=== PATIENT | female | born 1965 | race Caucasian/White ===

== ENCOUNTER 2023-06-13 22:36 | Emergency (ER) | payer OTHER ==
[2023-06-13] MEDS ORDERED: MORPHINE 4 MG/ML SYR ONE (23:29)
[2023-06-13] MEDS ORDERED: ONDANSETRON 4 MG/2 ML VIAL ONE (23:29)
[2023-06-13] MEDS ORDERED: KETOROLAC 30 MG/ML INJ ONE (23:29)
[2023-06-13 23:37] LABS: Absolute Lymphocytes (CBC) 1.8 K/uL (0.7-4.9); Hematocrit 34.2 % (36.0-45.0); Lymphocytes % 15.4 % (15.3-44.8); MCV 89.5 fL (80-100); MPV 7.8 fL (7.6-11.3); Platelets 241 thou/uL (152-406); RBC Red Blood Cell Count 3.83 M/uL (3.86-4.86)
[2023-06-13 23:52] LABS: Potassium 3.7 mEq/L (3.5-5.1)
[2023-06-14] MEDS ORDERED: CYCLOBENZAPRINE 10 MG TAB ONE (01:23)
[2023-06-14] MEDS ORDERED: HYDROCODONE/APAP 10/325 TAB ONE (01:24)
--- NOTE | 2023-06-14 02:01 | EDPHYS ---
Physician Documentation [facility] Name: Rema Michael Age: 58 yrs Sex: Female : 1965 Arrival Date: 06/13/2023 Time: 22:36 Bed 3 Private MD: ED Physician Shaw Candelaria HPI: 06/14 00:48 This 58 yrs old Female presents to ER via EMS with complaints of fall , sp4 multiple trauma . 02:07 Very pleasant 58-year-old female [place] she fell struck her sp4 head on a pole also sustained a left shoulder injury and also presents with neck pain and lower back pain. Patient presented with EMS in a c-collar but not on a spinal board. Patient has no signs of acute paralysis. Patient has history of cervical spine fusion -C5-C6-C7 levels . Patient primarily complains of left lateral scalp contusion, headache, left shoulder pain, neck pain, and lower back pain. Historical: - Allergies: 06/13 23:55 Wheat/glutens; jw7 - Home Meds: 23:55 Lisinopril Oral [Active]; levothyroxine oral [Active]; Trulicity subcutaneous [Active]; jw7 Furosemide Oral [Active]; - PMHx: 23:55 Diabetes mellitus; jw7 06/14 00:00 Thyroid; Hypertensive disorder; Hypercholesterolemia; Depressive disorder; Skin Cancer; jw7 - PSHx: 00:00 Spinal Infusion, C5, C6, C7; Rotator Cuff (L \\T\\ R); section; Skin Cancer, R jw7 forearm; - Immunization history:: Adult Immunizations up to date, Client reports receiving the 2nd dose of the Covid vaccine, Flu vaccine is up to date. - Social history:: Smoking status: Patient denies any tobacco usage or history of. - Family history:: not pertinent. ROS: 02:07 Constitutional: Negative for fever, chills, and weight loss, positive head injury, neck sp4 injury, positive lower back pain, positive left shoulder injury MS/Extremity: Positive for left shoulder injury, left shoulder pain, neck pain, lower back pain, scalp contusion left lateral location 02:07 All other systems are negative, Exam: 02:07 Constitutional: This is a well developed, well nourished patient who is awake, alert, sp4 and in no acute distress. Patient is in c-collar, no acute distress. Left forehead to left parietal scalp hematoma Head/Face: Normocephalic, left forehead to left parietal scalp hematoma Eyes: Pupils equal round and reactive to light, extra-ocular motions intact. Lids and lashes normal. Conjunctiva and sclera are not injected. Cornea within normal limits. Periorbital areas with no swelling, redness, or edema. ENT: Nares patent. No nasal discharge, no septal abnormalities noted. Tympanic membranes are normal and external auditory canals are clear. Oropharynx with no redness, swelling, or masses, exudates, or evidence of obstruction, uvula midline. Mucous membranes moist. Neck: Trachea midline, no thyromegaly or masses palpated, and no cervical lymphadenopathy. Supple, full range of motion without nuchal rigidity, or vertebral point tenderness. Chest/axilla: Normal chest wall appearance and motion. Nontender with no deformity. No lesions are appreciated. Cardiovascular: Regular rate and rhythm with a normal S1 and S2. No gallops, murmurs, or rubs. Normal PMI, no JVD. No pulse deficits. Respiratory: Lungs have equal breath sounds bilaterally, clear to auscultation and percussion. No rales, rhonchi or wheezes noted. No increased work of breathing, no retractions or nasal flaring. Abdomen/GI: Soft, non-tender, with normal bowel sounds. No distension or tympany. No guarding or rebound. No evidence of tenderness throughout. Back: No spinal tenderness. No costovertebral tenderness. Skin: Warm, dry with normal turgor. Normal color with no rashes, no lesions, and no evidence of cellulitis. MS/ Extremity: Pulses equal, no cyanosis. Neurovascular intact. Full, normal range of motion. Neuro: Awake and alert, GCS 15, oriented to person, place, time, and situation. Cranial nerves II-XII grossly intact. Motor strength 5/5 in all extremities. Sensory grossly intact. Psych: Awake, alert, with orientation to person, place and time. Behavior, mood, and affect are within normal limits Vital Signs: 06/13 22:45 BP 147 / 82 RA Supine (auto/reg); Pulse 98 MON; Resp 18 S; Temp 97.4(O); Pulse Ox 100% jw7 on R/A; Weight 127.01 kg; Height 5 ft. 8 in. ; Pain 9/10; 06/14 00:10 BP 123 / 52; Pulse 97; Resp 16 S; Pulse Ox 96% on R/A; jw7 01:15 BP 127 / 59; Pulse 93; Resp 18 S; Pulse Ox 98% on R/A; jw7 06/13 22:45 Body Mass Index 42.57 (127.01 kg, 172.72 cm) 7 06/13 22:45 Pain Scale: Adult jw7 Procedures: 02:07 Splinting: Splint applied to anterior aspect of left shoulder using sling, applied by 4 tech. Examined by me, post splint application: neurovascular intact, 2+ distal pulses palpable, brisk capillary refill noted, Patient tolerated well, Left arm sling and swath was applied. MDM: 06/13 22:54 Patient medically screened. [facility] 06/14 00:48 ED course: CT reports - FINDINGS: Although NECK: BRAIN: "Empty sella" appearance of the sp4 sella turcica with thinning of the pituitary parenchyma. No extra-axial fluid collection. No intracranial hemorrhage. No transtentorial herniation. No focal alston-white matter differentiation abnormality. MIDLINE SHIFT: No midline shift. OROPHARYNX: Unremarkable. HYPOPHARYNX: Unremarkable. LARYNX: Unremarkable. Normal epiglottis. TRACHEA: Unremarkable. RETROPHARYNGEAL SPACE: Unremarkable. SUBMANDIBULAR/PAROTID GLANDS: Unremarkable. Glands are normal in size. THYROID: Unremarkable. No enlarged or calcified nodules. ORBITS: Bilateral globes and orbits are intact with no abnormal intraorbital mass, collection, or foreign body. CHEST: LUNGS: Unremarkable. No mass. No consolidation. PLEURAL SPACE: Unremarkable. No significant effusion. No pneumothorax. HEART: Unremarkable. No cardiomegaly. No significant pericardial effusion. No significant coronary artery calcifications. ABDOMEN: LIVER: Unremarkable. GALLBLADDER AND BILE DUCTS: Cholelithiasis with no ductal dilatation or intraductal stones. PANCREAS: Unremarkable. No ductal dilation. SPLEEN: Unremarkable. No splenomegaly. ADRENALS: Unremarkable. No mass. KIDNEYS AND URETERS: Unremarkable. No obstructing stones. No hydronephrosis. STOMACH AND BOWEL: Unremarkable. No obstruction. No mucosal thickening. PELVIS: APPENDIX: No findings to suggest acute appendicitis. BLADDER: Unremarkable. No stones. REPRODUCTIVE: Unremarkable as visualized. NECK, CHEST, ABDOMEN and PELVIS: INTRAPERITONEAL SPACE: No free air or significant free fluid or fluid collection. BONES/JOINTS: Rotator cuff tear screws demonstrated in the bilateral humeral heads. Nondisplaced fracture of the posterior left glenoid. ACDF fixation plate and screws demonstrated at the C5-C7 levels, without evidence of hardware fracture, failure, or loosening. Associated osseous fusion of the C5-C7 disc spaces. Degenerative fusion of the right C2-3 posterior facets. No acute fracture or significant subluxation of the cervical, thoracic, or lumbar spine. No fracture of the calvarium or visualized facial bones. SOFT TISSUES: Moderate-sized left frontal scalp hematoma. No abnormal prevertebral soft tissue swelling. VASCULATURE: Unremarkable. No aortic aneurysm. LYMPH NODES: Unremarkable. No enlarged lymph nodes. OTHER FINDINGS: Dens is intact. Cervicocranial alignment is maintained. IMPRESSION: 1. Moderate-sized left frontal scalp hematoma. 2. Nondisplaced fracture of the posterior left glenoid. No other acute osseous abnormality. 3. No acute intracranial or cervical spine abnormality. 4. Allowing for lack of intravenous contrast, no acute abnormality within the chest, abdomen, or pelvis. 5. Cholelithiasis with no ductal dilatation or intraductal stones. . 01:58 ED course: X ray left humerus - EXAM DESCRIPTION: Shoulder Left 2 View (accession sp4 [id number]), Humerus Left (accession [id number]) CLINICAL HISTORY: shoulder injury COMPARISON: None. FINDINGS: 2 views of the left shoulder and 2 views of the left humerus. Osteopenia. Spurring of the acromioclavicular joint. Postoperative change of the cervical spine. Plate spondylosis of the visualized spine. Postoperative change of the humeral head. No glenohumeral dislocation. No acute fracture or dislocation. IMPRESSION: 1. No acute fracture or dislocation. Electronically signed by: Ge Hardwick 06/14/2023 1:34 AM. ED course: X ray Left shoulder - COMPARISON: None. FINDINGS: 2 views of the left shoulder and 2 views of the left humerus. Osteopenia. Spurring of the acromioclavicular joint. Postoperative change of the cervical spine. Plate spondylosis of the visualized spine. Postoperative change of the humeral head. No glenohumeral dislocation. No acute fracture or dislocation. IMPRESSION: 1. No acute fracture or dislocation. Electronically signed by: Ge Hardwick 06/14/2023 1:34 AM. 02:07 Differential Diagnosis altered mental status, Head injury, syncope, multiple trauma, sp4 left shoulder contusion, back sprain, neck sprain, neck fracture. Data reviewed: vital signs, nurses notes, EMS record, lab test result(s), radiologic studies, CT scan, plain films. Consideration of Admission/Observation. ED course: Left arm sling was applied for comfort.. Left posterior nondisplaced glenoid cavity fracture -patient was advised to follow-up with orthopedist in [place] where she resides. . 06/13 22:53 Order name: Basic Metabolic Panel; Complete Time: 00:46 sp4 06/13 22:53 Order name: CBC with Diff; Complete Time: 00:46 4 06/13 22:53 Order name: Type And Screen; Complete Time: 00:46 4 06/13 22:53 Order name: CT Traumagram (Head C Spine CAP wo con) 4 06/14 00:46 Order name: Shoulder Left (2 View) XRAY 4 06/14 00:46 Order name: Humerus Left XRAY 4 06/13 22:53 Order name: Labs collected and sent; Complete Time: 23:42 sp4 06/14 01:07 Order name: Sling; Complete Time: 01:54 sp4 Administered Medications: 06/13 23:43 Drug: Ketorolac IVP 30 mg IVP once Route: IVP; Site: right [facility]cubital; [facility] 06/14 01:01 Follow up: Response: No adverse reaction; Marked relief of symptoms [facility] 06/13 23:44 Drug: morphine IVP or IV 8 mg IVP once over 4 mins Route: IVP; Infused Over: 4 mins; jw7 Site: right antecubital; 06/14 01:01 Follow up: Response: No adverse reaction; Marked relief of symptoms 7 06/13 23:44 Drug: Ondansetron IVP 8 mg IVP once; over 2 minutes Route: IVP; Site: right antecubital;7 06/14 01:01 Follow up: Response: No adverse reaction [facility] 01:16 Drug: [place] PO 10 mg-325 mg 1 tabs PO once Route: PO; [facility] 01:55 Follow up: Response: No adverse reaction; Marked relief of symptoms jw7 01:16 Drug: Cyclobenzaprine PO 10 mg PO once Route: PO; jw7 01:55 Follow up: Response: No adverse reaction jw7 Disposition Summary: 06/14/23 02:01 Discharge Ordered Problem: new sp4 Symptoms: have improved sp4 Condition: Stable sp4 Diagnosis - Acute fall, left glenoid cavity fracture, left scalp hematoma, acute back sprain, sp4 left shoulder contusion, left posterior glenoid cavity fracture - Nondisplaced fracture left posterior glenoid sp4 Followup: sp4 - With: Private Physician - When: 7 - 10 days - Reason: Recheck today's complaints Discharge Instructions: - Discharge Summary Sheet sp4 - Contusion, [id number] sp4 Forms: - Patient Portal Instructions sp4 Prescriptions: - Ibuprofen 800 mg Oral Tablet - take 1 tablet by ORAL route every 8 hours As needed take with food; 30 tablet; sp4 Refills: 0, Product Selection Permitted - Cyclobenzaprine 10 mg Oral Tablet - take 1 tablet by ORAL route every 8 hours As needed; 30 tablet; Refills: 0, sp4 Product Selection Permitted - Tramadol 50 mg Oral Tablet - take 1 tablet by ORAL route every 8 hours as needed; 20 tablet; Refills: 0, sp4 Product Selection Permitted Signatures: Dispatcher [employer] Chelly Minaya RN RN jw7 Shaw Candelaria MD MD sp4 Corrections: (The following items were deleted from the chart) 00:03 06/13 23:55 PMHx: spinal infusion C5,C6,C7; jw7 7 06/14 00:03 06/13 23:55 PMHx: Rotator Cuff (L \\T\\ R); jw7 jw7
--- NOTE | 2023-06-14 02:01 | ER ---
Nurse's Notes [facility] Name: Rema Michael Age: 58 yrs Sex: Female : 1965 Arrival Date: 06/13/2023 Time: 22:36 Bed 3 Private MD: Diagnosis: Acute fall, left glenoid cavity fracture, left scalp hematoma, acute back sprain, left shoulder contusion, left posterior glenoid cavity fracture;Nondisplaced fracture left posterior glenoid Presentation: 06/13 22:45 Chief complaint: Patient states: "I fell and hit my head, left shoulder, and left knee".jw7 22:45 Method Of Arrival: EMS: [facility] 22:45 Coronavirus screen: At this time, the client does not indicate any symptoms associated jw with coronavirus-19. Ebola Screen: No symptoms or risks identified at this time. Initial Sepsis Screen: Does the patient meet any 2 criteria? No. Patient's initial sepsis screen is negative. Does the patient have a suspected source of infection? No. Patient's initial sepsis screen is negative. Risk Assessment: Do you want to hurt yourself or someone else? Patient reports no desire to harm self or others. Onset of symptoms was June 13, 2023. 22:45 Acuity: MARINO 3 jw7 Triage Assessment: 22:45 General: Appears in no apparent distress. uncomfortable, Behavior is calm, cooperative, jw7 quiet. Pain: Complains of pain in head, neck, lumbar area, left low back, left mid back, right mid back, right low back and left arm Pain does not radiate. Pain currently is 9 out of 10 on a pain scale. Quality of pain is described as sharp, stabbing, throbbing, Pain began suddenly, Is continuous, Noted to be resistant to movement. EENT: No deficits noted. No signs and/or symptoms were reported regarding the EENT system. Neuro: Alfredo Agitation-Sedation Scale (RASS): 0 - Alert and Calm Level of Consciousness is awake, alert, obeys commands, Oriented to person, place, time, situation, Pupils are PERRLA. Cardiovascular: No deficits noted. Capillary refill < 3 seconds Clubbing of nail beds is absent JVD is absent Patient's skin is warm and dry. Respiratory: No deficits noted. Airway is patent Trachea midline Respiratory effort is even, unlabored, Respiratory pattern is regular, symmetrical. GI: No deficits noted. No signs and/or symptoms were reported involving the gastrointestinal system. Abdomen is round non-distended, obese, Last BM was June 14, 2023. : No deficits noted. No signs and/or symptoms were reported regarding the genitourinary system. Derm: Skin is intact, is healthy with good turgor, Skin is dry, Skin is normal, Skin temperature is warm hematoma to left side of head. Musculoskeletal: Circulation, motion, and sensation intact. Range of motion: limited in left shoulder, left hip and left knee. Injury Description: Abrasion sustained to left knee. Historical: - Allergies: 23:55 Wheat/glutens; jw7 - Home Meds: 23:55 Lisinopril Oral [Active]; levothyroxine oral [Active]; Trulicity subcutaneous [Active]; jw7 Furosemide Oral [Active]; - PMHx: 23:55 Diabetes mellitus; 7 06/14 00:00 Thyroid; Hypertensive disorder; Hypercholesterolemia; Depressive disorder; Skin Cancer; jw7 - PSHx: 00:00 Spinal Infusion, C5, C6, C7; Rotator Cuff (L \\T\\ R); section; Skin Cancer, R jw7 forearm; - Immunization history:: Adult Immunizations up to date, Client reports receiving the 2nd dose of the Covid vaccine, Flu vaccine is up to date. - Social history:: Smoking status: Patient denies any tobacco usage or history of. - Family history:: not pertinent. Screenin/17 22:45 [facility] ED Fall Risk Assessment (Adult) History of falling in the last 3 months, 7 including since admission Yes- single mechanical fall (1 pt) Confusion or Disorientation No (0 pts) Intoxicated or Sedated No (0 pts) Impaired Gait No (0 pts) Mobility Assist Device Used No (0 pt) Altered Elimination No (0 pt) Score/Fall Risk Level 0 - 2 = Low Risk Oriented to surroundings, Maintained a safe environment, Educated pt \\T\\ family on fall prevention, incl call for assistance when getting out of bed. Abuse screen: Denies threats or abuse. Denies injuries from another. Nutritional screening: No deficits noted. Tuberculosis screening: No symptoms or risk factors identified. Assessment: 23:00 General: see triage assessment. 7 06/14 00:09 Reassessment: Patient appears in no apparent distress at this time. Patient and/or jw7 family updated on plan of care and expected duration. Pain level reassessed. Patient is alert, oriented x 3, equal unlabored respirations, skin warm/dry/pink. Patient states symptoms have improved. 01:20 Reassessment: Patient appears in no apparent distress at this time. No changes from jw7 previously documented assessment. Patient and/or family updated on plan of care and expected duration. Pain level reassessed. Patient is alert, oriented x 3, equal unlabored respirations, skin warm/dry/pink. Vital Signs: 06/13 22:45 BP 147 / 82 RA Supine (auto/reg); Pulse 98 MON; Resp 18 S; Temp 97.4(O); Pulse Ox 100% jw7 on R/A; Weight 127.01 kg; Height 5 ft. 8 in. ; Pain 9/10; 06/14 00:10 BP 123 / 52; Pulse 97; Resp 16 S; Pulse Ox 96% on R/A; jw7 01:15 BP 127 / 59; Pulse 93; Resp 18 S; Pulse Ox 98% on R/A; jw7 06/13 22:45 Body Mass Index 42.57 (127.01 kg, 172.72 cm) jw7 06/13 22:45 Pain Scale: Adult jw ED Course: 06/13 22:42 Patient arrived in ED. as6 22:45 Shaw Candelaria MD is Attending Physician. sp4 22:45 Patient has correct armband on for positive identification. Bed in low position. Call [facility] light in reach. Side rails up X2. 23:13 Chelly Sánchez RN is Primary Nurse. jw7 23:43 Initial lab(s) drawn, by de, sent to lab. Inserted saline lock: 20 gauge in right [facility] antecubital area, using aseptic technique. Blood collected. 23:55 Triage completed. jw7 06/14 00:09 Arm band placed on left wrist. jw7 00:10 CT Traumagram (Head C Spine CAP wo con) In Process Unspecified. EDMS 01:22 Shoulder Left (2 View) XRAY In Process Unspecified. EDMS 01:22 Humerus Left XRAY In Process Unspecified. EDMS 01:55 No provider procedures requiring assistance completed. jw7 02:11 IV discontinued, intact, bleeding controlled, No redness/swelling at site. Pressure as6 dressing applied. 02:12 Provided Education on: bedrest, follow up with orthro . as6 Administered Medications: 06/13 23:43 Drug: Ketorolac IVP 30 mg IVP once Route: IVP; Site: right antecubital; jw7 06/14 01:01 Follow up: Response: No adverse reaction; Marked relief of symptoms 7 06/13 23:44 Drug: morphine IVP or IV 8 mg IVP once over 4 mins Route: IVP; Infused Over: 4 mins; jw7 Site: right antecubital; 06/14 01:01 Follow up: Response: No adverse reaction; Marked relief of symptoms jw7 06/13 23:44 Drug: Ondansetron IVP 8 mg IVP once; over 2 minutes Route: IVP; Site: right antecubital;jw7 06/14 01:01 Follow up: Response: No adverse reaction jw7 01:16 Drug: [place] PO 10 mg-325 mg 1 tabs PO once Route: PO; jw7 01:55 Follow up: Response: No adverse reaction; Marked relief of symptoms jw7 01:16 Drug: Cyclobenzaprine PO 10 mg PO once Route: PO; jw7 01:55 Follow up: Response: No adverse reaction jw7 Medication: 01:55 VIS not applicable for this client. jw7 Outcome: 02:01 Discharge ordered by . sp4 02:11 Discharged to home ambulatory, with significant other, as6 02:11 Condition: stable 02:11 Discharge instructions given to patient, Instructed on discharge instructions, follow up and referral plans. medication usage, Demonstrated understanding of instructions, follow-up care, medications, Prescriptions given X 3, 02:12 Patient left the ED. as6 Signatures: Dispatcher [employer] EDND Silvestre Russell RN RN as6 Chelly Sánchez RN RN jw7 Shaw Candelaria MD MD sp4 Corrections: (The following items were deleted from the chart) 00:03 06/13 23:55 PMHx: spinal infusion C5,C6,C7; jw7 06/14 00:03 06/13 23:55 PMHx: Rotator Cuff (L \\T\\ R); jw7 7 06/14 00:59 09/17 22:45 Derm: Skin is intact, is healthy with good turgor, Skin is dry, Skin is jw7 normal, Skin temperature is warm jw7
[2023-06-14 03:42] VITALS: TEMP 97.4
[2023-06-14 03:44] VITALS: BP 127/59; O2SAT 98
--- NOTE | 2023-06-14 15:14 | RAD REPORT ---
EXAM DESCRIPTION: RAD - Humerus Left - 06/14/2023 1:20 am CLINICAL HISTORY: Shoulder injury COMPARISON: None. FINDINGS: 2 views of the left shoulder and 2 views of the left humerus. Osteopenia. Spurring of the acromioclavicular joint. Postoperative change of the cervical spine. Plate spondylosis of the visuali zed spine. Postoperative change of the humeral head. No glenohumeral dislocation. No acute fracture o r dislocation. IMPRESSION: 1. No acute fracture or dislocation. Electronically signed by: Ge Hardwick 06/14/2023 1:34 AM CDT Due to temporary technical issues with the PACS/Fluency reporting system, reports are being signed by the in house radiologist without review as a courtesy to ensure prompt reporting. The interpreting r adiologist is fully responsible for the content of the report.
--- NOTE | 2023-06-14 15:19 | RAD REPORT ---
EXAM DESCRIPTION: RAD - Shoulder Left 2 View - 06/14/2023 1:20 am CLINICAL HISTORY: Shoulder injury COMPARISON: None. FINDINGS: 2 views of the left shoulder and 2 views of the left humerus. Osteopenia. Spurring of the acromioclavicular joint. Postoperative change of the cervical spine. Plate spondylosis of the visuali zed spine. Postoperative change of the humeral head. No glenohumeral dislocation. No acute fracture o r dislocation. IMPRESSION: 1. No acute fracture or dislocation. Electronically signed by: Ge Hardwick 06/14/2023 1:34 AM CDT Due to temporary technical issues with the PACS/Fluency reporting system, reports are being signed by the in house radiologist without review as a courtesy to ensure prompt reporting. The interpreting r adiologist is fully responsible for the content of the report.
--- NOTE | 2023-06-14 15:20 | RAD REPORT ---
EXAM DESCRIPTION: CT - Head C Spine Cap Wo Con - 06/14/2023 7:00 am CLINICAL HISTORY: The patient is 58 years old and is Female; head, neck back injury [facility] MAIN TECHNIQUE: Axial computed tomography images of the head and cervical spine. Axial computed tomogra phy images of the chest, abdomen and pelvis without intravenous contrast. Sagittal and coronal refo rmatted images were created and reviewed. This CT exam was performed using one or more of the follo wing dose reduction techniques: automated exposure control, adjustment of the mA and/or kV accordin g to patient size, and/or use of iterative reconstruction technique. COMPARISON: No relevant prior studies available. FINDINGS: Although NECK: BRAIN: "Empty sella" appearance of the sella turcica with thinning of the pituitary parenchyma. No extra-axial fluid collection. No intracranial hemorrhage. No transtentorial herniation. No focal alston-white matter differentiation abnormality. MIDLINE SHIFT: No midline shift. OROPHARYNX: Unremarkable. HYPOPHARYNX: Unremarkable. LARYNX: Unremarkable. Normal epiglottis. TRACHEA: Unremarkable. RETROPHARYNGEAL SPACE: Unremarkable. SUBMANDIBULAR/PAROTID GLANDS: Unremarkable. Glands are normal in size. THYROID: Unremarkable. No enlarged or calcified nodules. ORBITS: Bilateral globes and orbits are intact with no abnormal intraorbital mass, collection, or f oreign body. CHEST: LUNGS: Unremarkable. No mass. No consolidation. PLEURAL SPACE: Unremarkable. No significant effusion. No pneumothorax. HEART: Unremarkable. No cardiomegaly. No significant pericardial effusion. No significant cor onary artery calcifications. ABDOMEN: LIVER: Unremarkable. GALLBLADDER AND BILE DUCTS: Cholelithiasis with no ductal dilatation or intraductal stones. PANCREAS: Unremarkable. No ductal dilation. SPLEEN: Unremarkable. No splenomegaly. ADRENALS: Unremarkable. No mass. KIDNEYS AND URETERS: Unremarkable. No obstructing stones. No hydronephrosis. STOMACH AND BOWEL: Unremarkable. No obstruction. No mucosal thickening. PELVIS: APPENDIX: No findings to suggest acute appendicitis. BLADDER: Unremarkable. No stones. REPRODUCTIVE: Unremarkable as visualized. NECK, CHEST, ABDOMEN and PELVIS: INTRAPERITONEAL SPACE: No free air or significant free fluid or fluid collection. BONES/JOINTS: Rotator cuff tear screws demonstrated in the bilateral humeral heads. Nondisplaced fracture of the posterior left glenoid. ACDF fixation plate and screws demonstrated at the C5-C7 levels, without evidence of hardware fracture, failure, or loosening. Associated osseous fusion of the C5-C7 disc spaces. Degenerative fusion of the right C2-3 posterior facets. No acute fracture or significant subluxation of the cervical, thoracic, or lumbar spine. No fracture of the calvarium or visualized facial bones. SOFT TISSUES: Moderate-sized left frontal scalp hematoma. No abnormal prevertebral soft tissue swelling. VASCULATURE: Unremarkable. No aortic aneurysm. LYMPH NODES: Unremarkable. No enlarged lymph nodes. OTHER FINDINGS: Dens is intact. Cervicocranial alignment is maintained. IMPRESSION: 1. Moderate-sized left frontal scalp hematoma. 2. Nondisplaced fracture of the posterior left glenoid. No other acute osseous abnormality. 3. No acute intracranial or cervical spine abnormality. 4. Allowing for lack of intravenous contrast, no acute abnormality within the chest, abdomen, or pe lvis. 5. Cholelithiasis with no ductal dilatation or intraductal stones. Electronically signed by: Boris Connor MD 06/14/2023 12:38 AM CDT Due to temporary technical issues with the PACS/Fluency reporting system, reports are being signed by the in house radiologist without review as a courtesy to ensure prompt reporting. The interpreting r adiologist is fully responsible for the content of the report.
== END 2023-06-14 02:12 | disposition home or self-care (01) ==
LOC: ER 22:36
DX: S42.145A Nondisplaced fracture of glenoid cavity of scapula, left shoulder, initial encounter for closed fracture (principal); S39.012A Strain of muscle, fascia and tendon of lower back, initial encounter; S00.03XA Contusion of scalp, initial encounter; W18.30XA Fall on same level, unspecified, initial encounter; E11.9 Type 2 diabetes mellitus without complications; Z79.4 Long term (current) use of insulin; I10 Essential (primary) hypertension; Z91.018 Allergy to other foods
CPT/HCPCS: 85025; 80048; 36415; 86900; 86850; 86901; 70450; 71250; 72125; 73060; 73030; 96375; 96374; 99284; J2405